=== PATIENT | male | born 1940 | race Caucasian/White ===

== ENCOUNTER 2016-12-09 20:41 | Inpatient (IN) | payer OTHER, MEDICARE ==
[~2016-12-09] VITALS: Ht 177.8 cm; Wt 83.9 kg
--- NOTE | ~2016-12-09 | HC ---
[facility] [place] [address] CONSULTATION Name: GIANCARLO WOLFE Room #: 214-P [facility] IN ..#: [id number] Admission: 12/09/16 Attend Phys: Bishnu Elizabeth MD Discharge: 12/11/16 Date of : 44 Report #: [id number] THIS REPORT FOR: //name// CC: [facility] REASON FOR CONSULTATION: Atrial fibrillation. HISTORY OF PRESENT ILLNESS: The patient is a 76-year-old with permanent atrial fibrillation. He had been maintained on Toprol and Pradaxa. For the past 8-9 months, he has developed diffuse rash. 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 He has been on multiple courses of steroids. He reports 2 prior biopsies, the results of which have been "unrevealing." I do not have these to review. He is admitted with facial droop and intermittent staggered gait. This was intermittent throughout the day yesterday, but currently resolved. He was seen in the Emergency Department with atrial fibrillation with a rapid ventricular response and placed on intravenous Cardizem. He is asymptomatic from the standpoint of this atrial dysrhythmia. No heart failure symptoms. No palpitations. No near syncope or syncope. MEDICATIONS: His prior medicines included metoprolol 100 mg daily, aspirin 81 mg daily, levothyroxine 75 mcg daily, atorvastatin 40 mg daily, citalopram 40 mg daily and fenofibrate. PAST MEDICAL HISTORY: Notable for permanent atrial fibrillation, several prior cardioversions, although not recently, prostate cancer with radical prostatectomy. He has a history of normal left ventricular systolic function and no valvular heart disease by echocardiography in January of last year, history of appendectomy. SOCIAL HISTORY: He has never been a smoker, is retired, . ALLERGIES: HE IS ALLERGIC SHELLFISH AND IODINE. FAMILY HISTORY: Father at 76 of pancreatic cancer. Mother at 96 of "old age." REVIEW OF SYSTEMS: All systems negative except as that noted above. PHYSICAL EXAMINATION: GENERAL: A pleasant gentleman in no distress. VITAL SIGNS: Blood pressure is 140/89, heart rate of 85 and irregular, respirations unlabored at 18, 5 feet 10 inches tall, 198 pounds. HEENT: There are neither xanthelasma, subcutaneous xanthomata, oral mucosal or digital cyanosis or kyphoscoliosis present. [facility] [address] [place] [address] CONSULTATION Name: GIANCARLO WOLFE A Room #: 214-P [facility] IN .R.#: [id number] Admission: 12/09/16 Attend Phys: Bishnu Elizabeth MD Discharge: 12/11/16 Date of : 44 Report #: [id number] CHEST: Clear to auscultation and percussion. CARDIAC: Irregularly irregular rhythm with normal S1, S2. No murmurs or rubs. ABDOMEN: Soft and nontender. EXTREMITIES: Without cyanosis, clubbing or edema. Radial pulses are 2+. NEUROLOGIC: He is alert with a nonfocal exam. LABORATORY DATA: EKG, atrial fibrillation. White count 10.3, hemoglobin 14, hematocrit 41, platelet count 241. Sodium 137, potassium 4.2, creatinine 1.2, troponin is negative. Head CT is normal. IMPRESSION: 1. Permanent atrial fibrillation. 2. Dyslipidemia. 3. Rash of uncertain etiology. 4. Hypercoagulable condition. RECOMMENDATIONS: I have a low suspicion that the patient's rash is related to medications, especially since he has been off for a solid 6 months and there has been no change in the eruption. He will need something for rate control. With his elevated CHADS-VASc score, continued anticoagulant therapy is recommended. No additional testing is needed at this point from a cardiovascular standpoint. I have discussed these issues with the patient and his . Thank you for asking me to participate in his care. <ELECTRONICALLY SIGNED> By: Lauri Hammer MD, [facility] 12/11/16 1636 [id number] [id number] Lauri Hammer MD, [facility] /nt
--- NOTE | ~2016-12-09 | 2DMMODE ---
[facility] [address] [place] [address] 2 D/M-MODE ECHOCARDIOGRAM Name: GIANCARLO WOLEF Room #: 214-P [facility] IN ..#: [id number] Admission: 12/09/16 Attend Phys: Petey Buckley Discharge: Date of : 44 Date of Service: 12/10/16 1701 Report #: [id number] THIS REPORT FOR: //name// APPROVED REPORT Study performed: 12/10/2016 12:33:37 EXAM: Comprehensive 2D, Doppler, and color-flow Echocardiogram Patient Location: Echo lab Room #: 214 Other Information Study Quality: Good Indications CVA/TIA Atrial Fibrillation Echo Enhancing Agent Indication: Rule out Shunt Agent(s) / Amount(s) Used: Agitated Saline 6 cc 2D Dimensions RVDd: 38.32 mm LVEF(%): 39.96 (>50%) IVSd: 11.59 (7-11mm) LVOT Diam: 17.37 (18-24mm) LVDd: 43.24 mm PWd: 11.59 (7-11mm) Ascending Ao: 32.77 (22-36mm) LVDs: 34.91 (25-40mm) Aortic Root: 34.28 mm IVC: 24.00 mm Vega's LVEF: 39.96 % Volumes Left Atrial Volume (Systole) Single Plane 4CH: 87.12 mL Single Plane 2CH: 97.67 mL LA ESV Index: 55.00 mL/m2 Aortic Valve AoV Peak Jaron.: 1.12 m/s AO Peak Gr.: 5.04 mmHg LVOT Max P.90 mmHg LVOT Max V: 0.85 m/s TL Vmax: 1.80 cm2 Mitral Valve MV Decel. Time: 151.[address] [facility] [place] [address] 2 D/M-MODE ECHOCARDIOGRAM Name: GIANCARLO WOLFE Room #: 214-P [facility] IN M.R.#: [id number] Admission: 12/09/16 Attend Phys: Petey Buckley Discharge: Date of : 44 Date of Service: 12/10/16 1701 Report #: [id number] MV E Max Jaron.: 0.86 m/s IVRT: 96.89 ms Pulmonary Valve PV Peak Jaron.: 1.05 m/s PV Peak Gr.: 4.41 mmHg Tricuspid Valve TR Peak Jaron.: 2.94 m/s RAP Estimate: 10.00 mmHg TR Peak Gr.: 34.53 mmHg Left Ventricle The left ventricle is normal size. There is normal LV segmental wall motion. Mild concentric left ventricular hypertrophy. The overall left ventricular systolic function appears normal. LVEF is 55%. This study is not technically sufficient to allow evaluation of the LV diastolic function due to atrial fibrillation. Right Ventricle Right ventricle is at the upper limits of normal. The right ventricular systolic function is normal. Atria Left atrium is dilated. Injection of bubbles documented no interatrial shunt. Right atrium is dilated. Aortic Valve The aortic valve is trileaflet, mildly sclerotic Mild aortic regurgitation. There is no aortic valvular stenosis. Mitral Valve The mitral valve is normal in structure. Mild mitral regurgitation. No evidence of mitral valve stenosis. Tricuspid Valve The tricuspid valve is normal in structure. Trace to mild tricuspid regurgitation. Unable to assess PA pressure. Pulmonic Valve Pulmonic valve is not well visualized. There is no pulmonic valvular regurgitation visualized. Great Vessels The aortic root is normal in size. IVC is dilated and collapses >50% with inspiration. Pericardium [address] [address] 2 D/M-MODE ECHOCARDIOGRAM Name: EARLVISHNUGIANCARLO Room #: 214-P [facility] IN .R.#: [id number] Admission: 12/09/16 Attend Phys: Petey Buckley Discharge: Date of : 44 Date of Service: 12/10/16 1701 Report #: [id number] There is no pericardial effusion. <Conclusion> The overall left ventricular systolic function appears normal. There is normal LV segmental wall motion. LVEF is 55%. Both atria are dilated. Injection of bubbles documented no interatrial shunt. The aortic valve is trileaflet, mildly sclerotic, no stenosis. Mild aortic regurgitation. The mitral valve is normal in structure. Mild mitral regurgitation. Pulmonary artery pressure could not be reliably ascertained There is no pericardial effusion. <ELECTRONICALLY SIGNED> By: Lauri Hammer MD, [facility] 12/10/161700 00 00 Lauri Hammer MD, FACC /INF
--- NOTE | ~2016-12-09 | EKG ---
[address] [place] [address] ELECTROCARDIOGRAM REPORT Name: GIANCARLO WOLFE Room #: 214-P [facility] IN M.R.#: [id number] Admission: 12/09/16 Attend Phys: Bishnu Elizabeth MD Discharge: Date of : 44 Report #: [id number] THIS REPORT FOR: //name// [facility] ED Test Date: 2016-12-09 Test Time: 21:00:58 Pat Name: GIANCARLO WOLFE Department: Room: 214 Gender: M Quality Facilitator: elizabeth : 1940 Requested By: Rex Curran Order Number: [id number] MD: Lauri Hammer Measurements Intervals [place] Rate: 131 P: GA: QRS: 21 QRSD: 83 T: -29 QT: 307 QTc: 454 Interpretive Statements Atrial fibrillation Nonspecific ST and T wave abnormality Compared to ECG 01/23/2008 10:14:13 Atrial fibrillation has replaced sinus rhythm Electronically Signed On 12-10-2016 9:27:53 CDT by Lauri Hammer [email or web address] <ELECTRONICALLY SIGNED> By: Lauri Hammer MD, [facility] 12/10/16 0927 2100 2100 Lauri Hammer MD, FACC /EPI
[2016-12-09 20:41] VITALS: BP 133/85
[2016-12-09 21:01] LABS: BASOPHILS 0.5 % (0.0-2.0); EOSINOPHILS 0.1 % (0.0-3.0); HEMATOCRIT 41.5 % (42.0-52.0); HEMOGLOBIN 14.1 gm/dL (14.0-18.0); LYMPHOCYTES 14.3 % (24.0-44.0); MANUAL DIFF NO; PLATELET COUNT 241 thou/uL (150-400); POLYS 78.1 % (36.0-66.0); RBC 4.56 mil/uL (4.50-6.00); RDW 13.5 % (10.5-14.5); WBC 10.3 thou/uL (4.0-11.0)
[2016-12-09 21:12] LABS: ANION GAP 12 mmol/L (7-16); BUN 18 mg/dL (7-18); CALCIUM 9.1 mg/dL (8.5-10.1); CHLORIDE 101 mmol/L (98-107); CO2 24 mmol/L (21-32); CREATININE 1.2 mg/dL (0.7-1.3); GLUCOSE 137 mg/dL (74-106); POTASSIUM 4.2 mmol/L (3.5-5.1); SODIUM 137 mmol/L (136-145)
[2016-12-09 21:19] LABS: ALBUMIN 3.5 g/dL (3.4-5.0); ALKALINE PHOSPHATASE 71 U/L (46-116); SGOT 19 U/L (15-37); SGPT 35 U/L (30-65); TOTAL BILIRUBIN 0.4 mg/dL (<0.1-1.0); TROPONIN-I < 0.04 ng/mL (<0.04-0.07)
[2016-12-09] MEDS ORDERED: FLUOCINOLONE AC15 G1 TP (21:27)
[2016-12-09] MEDS ORDERED: PREDNISONE 10 M10 MG (21:28)
[2016-12-09] MEDS ORDERED: HYDRALAZINE 2525 MG PO (21:29)
[2016-12-09] MEDS ORDERED: ATIVAN1 MG PO (21:29)
[2016-12-09 21:52] LABS: URINE BILIRUBIN NEGATIVE (Negative); URINE BLOOD NEGATIVE (Negative); URINE COLOR YELLOW; URINE GLUCOSE-RANDOM* NEGATIVE (Negative); URINE KETONES NEGATIVE (Negative); URINE LEUKOCYTES-REFLEX NEGATIVE (Negative); URINE PROTEIN (DIPSTICK) NEGATIVE (Negative); URINE UROBILINOGEN 0.2 E.U./dl (0.2-1.0)
[2016-12-09 22:01] LABS: AMP/METHAMP Negative (Negative); BARBITURATES Negative (Negative); BENZODIAZEPINES Negative (Negative); COCAINE Negative (Negative); METHADONE Negative (Negative); OPIATES Negative (Negative); PCP Negative (Negative); THC Negative (Negative)
[2016-12-09 23:17] VITALS: BP 140/77
[2016-12-09 23:27] VITALS: BP 157/85
[2016-12-10] VITALS (7 sets, daily range): BP systolic 133–148; BP diastolic 79–89
[2016-12-10] MEDS ORDERED: HYDROXYZINE HCL25 M1 PO (07:07)
[2016-12-11 00:05] LABS: FREE T4 1.08 ng/dL (0.82-1.77)
[2016-12-11 04:01] VITALS: BP 156/96
[2016-12-11 05:08] LABS: GLYCOHEMOGLOBIN (HGB A1C) 5.4 % (4.8-5.6)
[2016-12-11 08:21] VITALS: BP 156/96
[2016-12-11] MEDS ORDERED: PRADAXA150 MG PO (08:28)
[2016-12-11] MEDS ORDERED: TOPROL XL100 MG PO (08:28)
[2016-12-11] MEDS ORDERED: B-12 DOTS500 MCG PO (08:29)
[2016-12-11] MEDS ORDERED: VITAMIN B-1100 M1 PO (08:29)
[2016-12-11] MEDS ORDERED: FOLIC ACID1 MG PO (08:29)
[2016-12-11 09:50] VITALS: BP 156/96
== END 2016-12-11 09:40 | disposition home or self-care (01) | DRG 309 ==
LOC: ER 20:41 → 2N 22:25 → EROBS 22:25 → 2N 22:40
PROVIDERS: Internal Medicine; Physician Assistant; Psychiatry & Neurology Neurology
DX: I48.91 Unspecified atrial fibrillation (principal); D68.59 Other primary thrombophilia; G45.9 Transient cerebral ischemic attack, unspecified; E78.00 Pure hypercholesterolemia, unspecified; F10.220 Alcohol dependence with intoxication, uncomplicated; F32.9 Major depressive disorder, single episode, unspecified; E78.5 Hyperlipidemia, unspecified; R21 Rash and other nonspecific skin eruption; F17.210 Nicotine dependence, cigarettes, uncomplicated; E66.9 Obesity, unspecified; Z68.26 Body mass index [BMI] 26.0-26.9, adult; Z90.79 Acquired absence of other genital organ(s); Z85.46 Personal history of malignant neoplasm of prostate; Z90.49 Acquired absence of other specified parts of digestive tract; Z79.82 Long term (current) use of aspirin; Z79.899 Other long term (current) drug therapy; Z91.041 Radiographic dye allergy status; Z91.013 Allergy to seafood; Z80.0 Family history of malignant neoplasm of digestive organs
CPT/HCPCS: 10081

== ENCOUNTER → 2020-04-26 | Outpatient (CLI) | payer OTHER, MEDICARE ==
[~2020-04-26] MED LIST: ATIVAN1 MG PO; B-12 DOTS500 MCG PO; FLUOCINOLONE AC15 G1 TP; FOLIC ACID1 MG PO; HYDRALAZINE 2525 MG PO; HYDROXYZINE HCL25 M1 PO; PRADAXA150 MG PO; PREDNISONE 10 M10 MG; TOPROL XL100 MG PO; VITAMIN B-1100 M1 PO
== END ==
LOC: SJCVC 10:47
PROVIDERS: ATTEND Internal Medicine
DX: I48.21 Permanent atrial fibrillation (principal); R94.31 Abnormal electrocardiogram [ECG] [EKG]; I10 Essential (primary) hypertension; E78.5 Hyperlipidemia, unspecified; I65.23 Occlusion and stenosis of bilateral carotid arteries; Z79.01 Long term (current) use of anticoagulants; Z79.899 Other long term (current) drug therapy

== ENCOUNTER → 2020-05-25 | Outpatient (CLI) | payer OTHER, MEDICARE | LOC: SJCVCIMAG 09:06 | PROVIDERS: ATTEND Internal Medicine | DX: I65.23 Occlusion and stenosis of bilateral carotid arteries (principal); I08.3 Combined rheumatic disorders of mitral, aortic and tricuspid valves; I11.9 Hypertensive heart disease without heart failure; I48.21 Permanent atrial fibrillation; I77.9 Disorder of arteries and arterioles, unspecified; Z79.899 Other long term (current) drug therapy ==

== ENCOUNTER → 2021-03-30 | Outpatient (CLI) | payer OTHER, MEDICARE | LOC: SJCVC 10:53 | PROVIDERS: ATTEND Internal Medicine | DX: R94.31 Abnormal electrocardiogram [ECG] [EKG] (principal); I48.21 Permanent atrial fibrillation; I10 Essential (primary) hypertension; E78.5 Hyperlipidemia, unspecified; I65.23 Occlusion and stenosis of bilateral carotid arteries; F32.9 Major depressive disorder, single episode, unspecified; E78.2 Mixed hyperlipidemia; E03.9 Hypothyroidism, unspecified; Z79.01 Long term (current) use of anticoagulants; Z79.899 Other long term (current) drug therapy; Z88.8 Allergy status to other drugs, medicaments and biological substances; Z91.013 Allergy to seafood; Z82.49 Family history of ischemic heart disease and other diseases of the circulatory system ==